=== PATIENT | female | born 1955 | race Caucasian/White ===

== ENCOUNTER 2023-06-25 14:52 | Outpatient (RCR) | payer OTHER, SELFPAY | END 2023-06-25 23:59 | disposition home or self-care (01) | LOC: ROT 14:52 | PROVIDERS: ATTENDING PHYSICIAN Orthopaedic Surgery Hand Surgery; PRIMARYCARE PHYSICIAN Family Medicine | DX: Z47.89 Encounter for other orthopedic aftercare (principal); M25.522 Pain in left elbow; Z73.6 Limitation of activities due to disability; R20.0 Anesthesia of skin; M62.81 Muscle weakness (generalized); M25.512 Pain in left shoulder | CPT/HCPCS: 97010; 97110; 97112; 97140; 97535 ==

== ENCOUNTER 2023-07-29 11:31 | Outpatient (RCR) | payer OTHER, SELFPAY | END 2023-07-29 23:59 | disposition home or self-care (01) | LOC: ROT 11:31 | PROVIDERS: ATTENDING PHYSICIAN Orthopaedic Surgery Hand Surgery; PRIMARYCARE PHYSICIAN Family Medicine | DX: M25.522 Pain in left elbow (principal); Z73.6 Limitation of activities due to disability; R20.0 Anesthesia of skin; M62.81 Muscle weakness (generalized) | CPT/HCPCS: 97010; 97110; 97140 ==

== ENCOUNTER 2023-08-26 12:55 | Outpatient (RCR) | payer OTHER, SELFPAY | END 2023-08-26 23:59 | disposition home or self-care (01) | LOC: ROT 12:55 | PROVIDERS: ATTENDING PHYSICIAN Orthopaedic Surgery Hand Surgery; PRIMARYCARE PHYSICIAN Family Medicine | DX: M25.522 Pain in left elbow (principal); Z73.6 Limitation of activities due to disability; R20.0 Anesthesia of skin; M62.81 Muscle weakness (generalized) | CPT/HCPCS: 97010; 97110; 97112; 97140; 97535 ==

== ENCOUNTER 2023-09-13 13:54 | Outpatient (RCR) | payer OTHER, SELFPAY | END 2023-09-14 07:39 | disposition home or self-care (01) | LOC: ROT 13:54 | PROVIDERS: ATTENDING PHYSICIAN Orthopaedic Surgery Hand Surgery; PRIMARYCARE PHYSICIAN Family Medicine | DX: M25.522 Pain in left elbow (principal); Z73.6 Limitation of activities due to disability; R20.0 Anesthesia of skin; M62.81 Muscle weakness (generalized) | CPT/HCPCS: 97010; 97110; 97140 ==

== ENCOUNTER → 2025-01-12 10:38 | Outpatient (REF) | payer OTHER, SELFPAY | LOC: RAD 10:38 | PROVIDERS: ATTENDING PHYSICIAN Nurse Practitioner | DX: N89.8 Other specified noninflammatory disorders of vagina (principal); Z87.42 Personal history of other diseases of the female genital tract | CPT/HCPCS: 76830; 76856 ==